=== PATIENT | male | born 1965 | race Caucasian/White ===

== ENCOUNTER → 2019-01-18 | Outpatient (CLI) | payer OTHER, BC ==
[~2019-01-18] MED LIST: CEPHALEXIN500 M1 PO; LIPITOR 10MG10 MG PO; OXY IR5 MG PO; ULTRAM 50MG TAB50 MG PO
[2019-01-18 10:45] LABS: INR 1.7 (0.8-3.0); PROTHROMBIN TIME 19.8 SECONDS (9.7-12.8)
== END ==
LOC: COL.LAB 09:59
DX: Z95.2 Presence of prosthetic heart valve (principal)

== ENCOUNTER → 2019-01-21 | Outpatient (CLI) | payer OTHER, BC ==
[2019-01-23 13:33] LABS: INR 1.8 (0.8-3.0); PROTHROMBIN TIME 20.1 SECONDS (9.7-12.8)
== END ==
LOC: COL.LAB 10:00
DX: Z95.2 Presence of prosthetic heart valve (principal)

== ENCOUNTER → 2019-01-25 | Outpatient (CLI) | payer BC ==
[2019-01-25 10:42] LABS: PROTHROMBIN TIME 23.2 SECONDS (9.7-12.8)
== END ==
LOC: COL.LAB 10:11
PROVIDERS: Internal Medicine Cardiovascular Disease
DX: Z95.2 Presence of prosthetic heart valve (principal)

== ENCOUNTER → 2019-01-27 | Outpatient (CLI) | payer BC ==
[2019-01-27 09:57] LABS: INR 2.7 (0.8-3.0); PROTHROMBIN TIME 30.4 SECONDS (9.7-12.8)
== END ==
LOC: COL.LAB 09:31
PROVIDERS: Internal Medicine Cardiovascular Disease
DX: Z95.2 Presence of prosthetic heart valve (principal)

== ENCOUNTER → 2019-02-01 | Outpatient (CLI) | payer BC ==
[2019-02-01 10:07] LABS: INR 2.4 (0.8-3.0); PROTHROMBIN TIME 27.3 SECONDS (9.7-12.8)
== END ==
LOC: COL.LAB 09:41
DX: Z95.2 Presence of prosthetic heart valve (principal)

== ENCOUNTER → 2019-02-08 | Outpatient (CLI) | payer BC ==
[2019-02-08 12:46] LABS: INR 2.2 (0.8-3.0); PROTHROMBIN TIME 24.8 SECONDS (9.7-12.8)
== END ==
LOC: COL.LAB 12:08
PROVIDERS: Internal Medicine Cardiovascular Disease
DX: Z95.2 Presence of prosthetic heart valve (principal)

== ENCOUNTER → 2019-02-15 | Outpatient (CLI) | payer BC ==
[2019-02-15 10:35] LABS: INR 2.6 (0.8-3.0); PROTHROMBIN TIME 29.6 SECONDS (9.7-12.8)
== END ==
LOC: COL.LAB 10:02
PROVIDERS: Internal Medicine Cardiovascular Disease
DX: Z95.2 Presence of prosthetic heart valve (principal)

== ENCOUNTER → 2019-02-22 | Outpatient (CLI) | payer BC ==
[2019-02-22 10:51] LABS: INR 2.3 (0.8-3.0); PROTHROMBIN TIME 26.6 SECONDS (9.7-12.8)
== END ==
LOC: COL.LAB 10:03
PROVIDERS: Internal Medicine Cardiovascular Disease
DX: Z95.2 Presence of prosthetic heart valve (principal)

== ENCOUNTER → 2019-03-01 | Outpatient (CLI) | payer BC ==
[2019-03-01 10:55] LABS: INR 1.6 (0.8-3.0); PROTHROMBIN TIME 17.7 SECONDS (9.7-12.8)
== END ==
LOC: COL.LAB 10:10
PROVIDERS: Internal Medicine Cardiovascular Disease
DX: Z95.2 Presence of prosthetic heart valve (principal)

== ENCOUNTER 2019-03-05 14:57 | Outpatient (RCR) | payer BC | END 2019-03-17 06:03 | disposition home or self-care (01) | LOC: COL.CR 14:57 | DX: Z48.812 Encounter for surgical aftercare following surgery on the circulatory system (principal); Z95.2 Presence of prosthetic heart valve; I35.0 Nonrheumatic aortic (valve) stenosis; Z98.890 Other specified postprocedural states; Z86.79 Personal history of other diseases of the circulatory system ==